=== PATIENT | female | born 1965 | race Caucasian/White ===

== ENCOUNTER 2018-12-29 14:19 | Outpatient (REF) | payer MEDICARE, MEDICAID, SELFPAY ==
[2018-12-29 19:05] LABS: Anion Gap 8.3 mmol/L (3-11); BUN 10 mg/dL (7-18); CO2 32.7 mmol/L (21.0-32.0); CREATININE 0.58 mg/dL (0.55-1.02); Calculated LDL 167 mg/dL; Chloride 100 mmol/L (98-107); Cholesterol 237 mg/dL (50-200); Glucose 119 mg/dL (70-100); HDL Cholesterol 53 mg/dL (40-60); Potassium 4.4 mmol/L (3.5-5.1); Sodium 141 mmol/L (136-145); Triglyceride 87 mg/dL (30-150)
== END 2018-12-29 14:39 ==
LOC: NCHCN 14:19
PROVIDERS: PCP Internal Medicine; Visit Provider Nurse Practitioner Family
DX: E78.5 Hyperlipidemia, unspecified (principal); I10 Essential (primary) hypertension
CPT/HCPCS: 80048; 80061; 83721

== ENCOUNTER 2019-12-28 14:15 | Outpatient (REF) | payer MEDICARE, MEDICAID, SELFPAY ==
[2019-12-28 19:26] LABS: Anion Gap 3.5 mmol/L (3-11); BUN 11 mg/dL (7-18); CO2 33.5 mmol/L (21.0-32.0); CREATININE 0.55 mg/dL (0.55-1.02); Calcium 9.2 mg/dL (8.5-10.1); Calculated LDL 166 mg/dL (<100); Chloride 102 mmol/L (98-107); Cholesterol 255 mg/dL (<200); Glucose 128 mg/dL (74-106); HDL Cholesterol 55 mg/dL (40-60); Sodium 139 mmol/L (136-145); Triglyceride 171 mg/dL (<150)
== END 2019-12-28 14:35 ==
LOC: NCHCN 14:15
PROVIDERS: PCP Internal Medicine; Visit Provider Nurse Practitioner Family
DX: E78.5 Hyperlipidemia, unspecified (principal); I10 Essential (primary) hypertension
CPT/HCPCS: 80048; 80061

== ENCOUNTER 2021-02-05 17:36 | Outpatient (REF) | payer MEDICARE, MEDICAID, SELFPAY ==
[2021-02-05 20:03] LABS: ALT 16 U/L (14-59); AST 10 U/L (15-37); Albumin 3.7 g/dL (3.4-5.0); Alkaline Phosphatase 68 U/L (46-116); Anion Gap 1.3 mmol/L (3-11); BUN 8 mg/dL (7-18); Bilirubin, Total 0.3 mg/dL (0.2-1.0); CO2 40.7 mmol/L (21.0-32.0); CREATININE 0.5 mg/dL (0.55-1.02); Calcium 9.3 mg/dL (8.5-10.1); Calculated LDL 157 mg/dL (<100); Chloride 99 mmol/L (98-107); Cholesterol 227 mg/dL (<200); Glucose 110 mg/dL (74-106); HDL Cholesterol 52 mg/dL (40-60); Potassium 4.3 mmol/L (3.5-5.1); Sodium 141 mmol/L (136-145); Triglyceride 93 mg/dL (<150)
== END 2021-02-05 17:37 | disposition home or self-care (01) ==
LOC: NCHCN 17:36
PROVIDERS: PCP Internal Medicine; Visit Provider Nurse Practitioner Family
DX: E78.5 Hyperlipidemia, unspecified (principal); I10 Essential (primary) hypertension
CPT/HCPCS: 80053; 80061

== ENCOUNTER 2021-02-15 13:09 | Outpatient (REF) | payer MEDICARE, MEDICAID, SELFPAY ==
[2021-02-15 19:46] LABS: Abs Immature Grans 0.01 10^3/uL (0.0-0.06); Absolute Basophil Count 0.04 10^3/uL (0.0-0.2); Absolute Eosinophil Count 0.14 10^3/uL (0.0-0.7); Absolute Monocyte Count 0.38 10^3/uL (0.1-0.8); Absolute Neutrophil Count 4.36 10^3/uL (1.2-6.7); Basophils % 0.7; Eosinophils % 2.3; HCT 34.8 % (36.0-46.0); HGB 10.7 g/dL (11.2-15.7); Immature Grans % 0.2; Lymphocytes % 18.2; MCH 28.5 pg (27.0-33.0); MCHC 30.7 % (32.0-36.0); MCV 92.8 fL (80-95); Monocytes % 6.3; Neutrophils % 72.3; Nucleated RBC 0 %; Platelet Count 267 10^3/uL (130-400); RBC 3.75 10^6/uL (3.93-5.22); RDW 13.2 % (11.7-14.6); WBC 6.03 10^3/uL (4.4-10.8)
[2021-02-16 21:57] LABS: CEA 1010.7 ng/mL (See Note)
[2021-02-19 19:45] LABS: DPYD Phenotype Normal metabolizer
== END 2021-02-15 13:10 | disposition home or self-care (01) ==
LOC: LBN 13:09
PROVIDERS: PCP Internal Medicine; Visit Provider Internal Medicine Hematology & Oncology
DX: C20 Malignant neoplasm of rectum (principal); C78.7 Secondary malignant neoplasm of liver and intrahepatic bile duct
CPT/HCPCS: 81232; 82378; 85025

== ENCOUNTER 2021-02-27 01:13 | Outpatient (RCR) | payer MEDICARE, MEDICAID, SELFPAY ==
[2021-02-27 10:49] LABS: Abs Immature Grans 0.01 10^3/uL (0.0-0.06); Absolute Basophil Count 0.03 10^3/uL (0.0-0.2); Absolute Eosinophil Count 0.17 10^3/uL (0.0-0.7); Absolute Lymphocyte Count 1.28 10^3/uL (1.2-3.4); Absolute Monocyte Count 0.47 10^3/uL (0.1-0.8); Basophils % 0.5; Eosinophils % 2.8; HCT 34.2 % (36.0-46.0); HGB 10.6 g/dL (11.2-15.7); Immature Grans % 0.2; Lymphocytes % 20.8; MCV 93.7 fL (80-95); MPV 10.8 fL (8.0-11.0); Monocytes % 7.6; Neutrophils % 68.1; Nucleated RBC 0 %; Platelet Count 246 10^3/uL (130-400); RBC 3.65 10^6/uL (3.93-5.22); RDW 13.3 % (11.7-14.6); RDW-SD 45.8 fL; WBC 6.16 10^3/uL (4.4-10.8)
[2021-02-27 11:02] LABS: ALT 15 U/L (14-59); AST 12 U/L (15-37); Albumin 3.6 g/dL (3.4-5.0); Alkaline Phosphatase 70 U/L (46-116); Anion Gap 2.7 mmol/L (3-11); BUN 9 mg/dL (7-18); Bilirubin, Total 0.3 mg/dL (0.2-1.0); CO2 39.3 mmol/L (21.0-32.0); CREATININE 0.5 mg/dL (0.55-1.02); Calcium 9.2 mg/dL (8.5-10.1); Chloride 99 mmol/L (98-107); Glucose 120 mg/dL (74-106); Potassium 4.3 mmol/L (3.5-5.1); Sodium 141 mmol/L (136-145); Total Protein 7.4 g/dL (6.4-8.2)
[2021-02-27] MEDS: Normal Saline Flush 10 ML SYR IVP (11:03)
[2021-02-27 23:16] LABS: CEA 1038.7 ng/mL (See Note)
== END 2021-03-04 23:59 | disposition home or self-care (01) ==
LOC: INF 01:13
PROVIDERS: PCP Internal Medicine; Visit Provider Internal Medicine Hematology & Oncology
DX: C20 Malignant neoplasm of rectum (principal); C78.7 Secondary malignant neoplasm of liver and intrahepatic bile duct; Z45.2 Encounter for adjustment and management of vascular access device
CPT/HCPCS: 36415; 36591; 80053; 96523; 82378; 85025

== ENCOUNTER 2021-03-26 01:41 | Outpatient (RCR) | payer MEDICARE, MEDICAID, SELFPAY ==
[2021-03-12] MEDS: Normal Saline Flush 10 ML SYR IVP (12:27)
[2021-03-12 12:28] LABS: Abs Immature Grans 0.01 10^3/uL (0.0-0.06); Absolute Basophil Count 0.01 10^3/uL (0.0-0.2); Absolute Eosinophil Count 0.16 10^3/uL (0.0-0.7); Absolute Neutrophil Count 3.81 10^3/uL (1.2-6.7); Basophils % 0.2; Eosinophils % 2.9; HCT 31.7 % (36.0-46.0); HGB 9.7 g/dL (11.2-15.7); Immature Grans % 0.2; MCH 28.7 pg (27.0-33.0); MCHC 30.6 % (32.0-36.0); MCV 93.8 fL (80-95); MPV 10.4 fL (8.0-11.0); Monocytes % 7.3; Neutrophils % 69.4; Nucleated RBC 0 %; Platelet Count 228 10^3/uL (130-400); RBC 3.38 10^6/uL (3.93-5.22); RDW 13.3 % (11.7-14.6); RDW-SD 45.7 fL; WBC 5.49 10^3/uL (4.4-10.8)
[2021-03-12 12:40] LABS: ALT 16 U/L (14-59); AST 17 U/L (15-37); Albumin 3.6 g/dL (3.4-5.0); Alkaline Phosphatase 79 U/L (46-116); Anion Gap -1.7 mmol/L (3-11); BUN 8 mg/dL (7-18); Bilirubin, Total 0.3 mg/dL (0.2-1.0); CO2 41.7 mmol/L (21.0-32.0); CREATININE 0.4 mg/dL (0.55-1.02); Calcium 9.1 mg/dL (8.5-10.1); Chloride 100 mmol/L (98-107); Glucose 120 mg/dL (74-106); Potassium 4.3 mmol/L (3.5-5.1); Sodium 140 mmol/L (136-145); Total Protein 7.3 g/dL (6.4-8.2)
[2021-03-26] MEDS: Normal Saline Flush 10 ML SYR IVP (09:16)
[2021-03-26 09:30] LABS: Abs Immature Grans 0.02 10^3/uL (0.0-0.06); Absolute Basophil Count 0.03 10^3/uL (0.0-0.2); Absolute Eosinophil Count 0.17 10^3/uL (0.0-0.7); Absolute Lymphocyte Count 1.27 10^3/uL (1.2-3.4); Absolute Monocyte Count 0.66 10^3/uL (0.1-0.8); Absolute Neutrophil Count 4.04 10^3/uL (1.2-6.7); Basophils % 0.5; Eosinophils % 2.7; HGB 9.9 g/dL (11.2-15.7); Immature Grans % 0.3; Lymphocytes % 20.5; MCH 29.1 pg (27.0-33.0); MCHC 30.9 % (32.0-36.0); MCV 94.1 fL (80-95); MPV 10.4 fL (8.0-11.0); Monocytes % 10.7; Neutrophils % 65.3; Nucleated RBC 0 %; Platelet Count 212 10^3/uL (130-400); RDW 13.7 % (11.7-14.6); RDW-SD 46.1 fL; WBC 6.19 10^3/uL (4.4-10.8)
[2021-03-26 09:51] LABS: ALT 16 U/L (14-59); AST 14 U/L (15-37); Albumin 3.6 g/dL (3.4-5.0); Alkaline Phosphatase 82 U/L (46-116); Anion Gap -1.3 mmol/L (3-11); BUN 9 mg/dL (7-18); Bilirubin, Total 0.3 mg/dL (0.2-1.0); CO2 41.3 mmol/L (21.0-32.0); CREATININE 0.5 mg/dL (0.55-1.02); Calcium 9.2 mg/dL (8.5-10.1); Chloride 99 mmol/L (98-107); Glucose 140 mg/dL (74-106); Potassium 4.3 mmol/L (3.5-5.1); Sodium 139 mmol/L (136-145); Total Protein 7.4 g/dL (6.4-8.2)
== END 2021-04-03 23:59 | disposition home or self-care (01) ==
LOC: INF 01:41
PROVIDERS: PCP Internal Medicine; Visit Provider Internal Medicine Hematology & Oncology
DX: C20 Malignant neoplasm of rectum (principal); C78.7 Secondary malignant neoplasm of liver and intrahepatic bile duct; Z45.2 Encounter for adjustment and management of vascular access device
CPT/HCPCS: 36591; 80053; 82378; 85025

== ENCOUNTER 2021-04-24 01:17 | Outpatient (RCR) | payer MEDICARE, MEDICAID, SELFPAY ==
[2021-04-09] MEDS: Normal Saline Flush 10 ML SYR IVP (13:20)
[2021-04-09] MEDS: Heparin 500 UNITS/5 ML SYRINGE IV (13:21)
[2021-04-09 13:29] LABS: Abs Immature Grans 0.02 10^3/uL (0.0-0.06); Absolute Basophil Count 0.02 10^3/uL (0.0-0.2); Absolute Eosinophil Count 0.07 10^3/uL (0.0-0.7); Absolute Lymphocyte Count 1.03 10^3/uL (1.2-3.4); Absolute Monocyte Count 0.49 10^3/uL (0.1-0.8); Absolute Neutrophil Count 3.96 10^3/uL (1.2-6.7); Basophils % 0.4; Eosinophils % 1.3; HGB 9.9 g/dL (11.2-15.7); Immature Grans % 0.4; Lymphocytes % 18.4; MCH 29.5 pg (27.0-33.0); MCHC 30.9 % (32.0-36.0); MCV 95.2 fL (80-95); MPV 10.4 fL (8.0-11.0); Monocytes % 8.8; Neutrophils % 70.7; Nucleated RBC 0 %; Platelet Count 182 10^3/uL (130-400); RBC 3.36 10^6/uL (3.93-5.22); RDW 14.6 % (11.7-14.6); RDW-SD 49.9 fL; WBC 5.59 10^3/uL (4.4-10.8)
[2021-04-09 13:42] LABS: ALT 20 U/L (14-59); AST 17 U/L (15-37); Albumin 3.6 g/dL (3.4-5.0); Alkaline Phosphatase 90 U/L (46-116); Anion Gap 2.3 mmol/L (3-11); BUN 8 mg/dL (7-18); Bilirubin, Total 0.3 mg/dL (0.2-1.0); CO2 39.7 mmol/L (21.0-32.0); CREATININE 0.5 mg/dL (0.55-1.02); Calcium 9.2 mg/dL (8.5-10.1); Chloride 98 mmol/L (98-107); Glucose 130 mg/dL (74-106); Sodium 140 mmol/L (136-145); Total Protein 7.4 g/dL (6.4-8.2)
[2021-04-10 21:12] LABS: CEA 569.9 ng/mL (See Note)
[2021-04-24 10:10] LABS: Abs Immature Grans 0.02 10^3/uL (0.0-0.06); Absolute Basophil Count 0.03 10^3/uL (0.0-0.2); Absolute Eosinophil Count 0.16 10^3/uL (0.0-0.7); Absolute Lymphocyte Count 1.16 10^3/uL (1.2-3.4); Absolute Monocyte Count 0.58 10^3/uL (0.1-0.8); Absolute Neutrophil Count 3.15 10^3/uL (1.2-6.7); Basophils % 0.6; Eosinophils % 3.1; HGB 9.5 g/dL (11.2-15.7); Immature Grans % 0.4; Lymphocytes % 22.7; MCH 29.8 pg (27.0-33.0); MCHC 30.6 % (32.0-36.0); MCV 97.2 fL (80-95); MPV 10.5 fL (8.0-11.0); Monocytes % 11.4; Neutrophils % 61.8; Nucleated RBC 0 %; Platelet Count 176 10^3/uL (130-400); RBC 3.19 10^6/uL (3.93-5.22); RDW-SD 52.2 fL
[2021-04-24 10:27] LABS: Iron 33 ug/dL (50-170); Total Iron Binding Capacity 291 ug/dL (250-450); Transferrin Sat 11 % (15-50)
[2021-04-24 10:36] LABS: ALT 18 U/L (14-59); AST 14 U/L (15-37); Albumin 3.3 g/dL (3.4-5.0); Alkaline Phosphatase 81 U/L (46-116); Anion Gap -1.1 mmol/L (3-11); BUN 12 mg/dL (7-18); Bilirubin, Total 0.3 mg/dL (0.2-1.0); CO2 41.1 mmol/L (21.0-32.0); CREATININE 0.5 mg/dL (0.55-1.02); Chloride 101 mmol/L (98-107); Ferritin 81 ng/mL (8-252); Glucose 109 mg/dL (74-106); Potassium 4.3 mmol/L (3.5-5.1); Sodium 141 mmol/L (136-145); Total Protein 6.7 g/dL (6.4-8.2)
[2021-04-24] MEDS: Normal Saline Flush 10 ML SYR IVP (11:07)
[2021-04-24 23:55] LABS: CEA 321.1 ng/mL (See Note)
== END 2021-05-04 23:59 | disposition home or self-care (01) ==
LOC: INF 01:17
PROVIDERS: PCP Internal Medicine; Visit Provider Internal Medicine Hematology & Oncology
DX: C20 Malignant neoplasm of rectum (principal); Z45.2 Encounter for adjustment and management of vascular access device; D53.9 Nutritional anemia, unspecified; C78.7 Secondary malignant neoplasm of liver and intrahepatic bile duct
CPT/HCPCS: 36591; 80053; 82378; 82728; 83540; 83550; 85025

== ENCOUNTER 2021-06-04 01:16 | Outpatient (RCR) | payer MEDICARE, MEDICAID, SELFPAY ==
[2021-05-07] MEDS: Heparin 500 UNITS/5 ML SYRINGE IV (13:37)
[2021-05-07] MEDS: Normal Saline Flush 10 ML SYR IVP (13:37)
[2021-05-07 13:54] LABS: Abs Immature Grans 0.01 10^3/uL (0.0-0.06); Absolute Basophil Count 0.02 10^3/uL (0.0-0.2); Absolute Eosinophil Count 0.08 10^3/uL (0.0-0.7); Absolute Lymphocyte Count 1.18 10^3/uL (1.2-3.4); Absolute Monocyte Count 0.66 10^3/uL (0.1-0.8); Absolute Neutrophil Count 3.48 10^3/uL (1.2-6.7); Basophils % 0.4; Eosinophils % 1.5; HCT 31.1 % (36.0-46.0); HGB 9.6 g/dL (11.2-15.7); Immature Grans % 0.2; Lymphocytes % 21.7; MCH 29.9 pg (27.0-33.0); MCHC 30.9 % (32.0-36.0); MCV 96.9 fL (80-95); MPV 10.7 fL (8.0-11.0); Monocytes % 12.2; Nucleated RBC 0 %; Platelet Count 153 10^3/uL (130-400); RBC 3.21 10^6/uL (3.93-5.22); RDW 14.9 % (11.7-14.6); RDW-SD 52.7 fL; WBC 5.43 10^3/uL (4.4-10.8)
[2021-05-07 14:20] LABS: ALT 20 U/L (14-59); AST 15 U/L (15-37); Albumin 3.4 g/dL (3.4-5.0); Alkaline Phosphatase 89 U/L (46-116); Anion Gap 2.6 mmol/L (3-11); BUN 10 mg/dL (7-18); Bilirubin, Total 0.4 mg/dL (0.2-1.0); CO2 39.4 mmol/L (21.0-32.0); CREATININE 0.6 mg/dL (0.55-1.02); Calcium 9.1 mg/dL (8.5-10.1); Chloride 99 mmol/L (98-107); Glucose 145 mg/dL (74-106); Potassium 4.5 mmol/L (3.5-5.1); Sodium 141 mmol/L (136-145)
[2021-05-08 03:41] LABS: CEA 196.9 ng/mL (See Note)
[2021-05-21] MEDS: Normal Saline Flush 10 ML SYR IVP (08:36)
[2021-05-21 08:43] LABS: Abs Immature Grans 0.01 10^3/uL (0.0-0.06); Absolute Basophil Count 0.02 10^3/uL (0.0-0.2); Absolute Eosinophil Count 0.12 10^3/uL (0.0-0.7); Absolute Lymphocyte Count 1.42 10^3/uL (1.2-3.4); Absolute Monocyte Count 0.72 10^3/uL (0.1-0.8); Absolute Neutrophil Count 2.58 10^3/uL (1.2-6.7); Basophils % 0.4; Eosinophils % 2.5; HCT 32.3 % (36.0-46.0); HGB 9.6 g/dL (11.2-15.7); Immature Grans % 0.2; Lymphocytes % 29.2; MCH 29.6 pg (27.0-33.0); MCHC 29.7 % (32.0-36.0); MCV 99.7 fL (80-95); MPV 10.4 fL (8.0-11.0); Monocytes % 14.8; Neutrophils % 52.9; Nucleated RBC 0 %; Platelet Count 143 10^3/uL (130-400); RBC 3.24 10^6/uL (3.93-5.22); RDW 15.2 % (11.7-14.6); RDW-SD 55.2 fL; WBC 4.87 10^3/uL (4.4-10.8)
[2021-05-21 08:52] LABS: ALT 26 U/L (14-59); AST 25 U/L (15-37); Albumin 3.5 g/dL (3.4-5.0); Alkaline Phosphatase 87 U/L (46-116); Anion Gap 0.2 mmol/L (3-11); BUN 8 mg/dL (7-18); Bilirubin, Total 0.3 mg/dL (0.2-1.0); CO2 40.8 mmol/L (21.0-32.0); CREATININE 0.5 mg/dL (0.55-1.02); Chloride 99 mmol/L (98-107); Glucose 116 mg/dL (74-106); Potassium 4.4 mmol/L (3.5-5.1); Sodium 140 mmol/L (136-145); Total Protein 7.1 g/dL (6.4-8.2)
[2021-05-21 19:19] LABS: CEA 210.8 ng/mL (See Note)
[2021-06-04] MEDS: Normal Saline Flush 10 ML SYR IVP (12:39)
[2021-06-04 12:58] LABS: Abs Immature Grans 0.02 10^3/uL (0.0-0.06); Absolute Basophil Count 0.02 10^3/uL (0.0-0.2); Absolute Eosinophil Count 0.08 10^3/uL (0.0-0.7); Absolute Monocyte Count 0.67 10^3/uL (0.1-0.8); Absolute Neutrophil Count 3.24 10^3/uL (1.2-6.7); Basophils % 0.4; Eosinophils % 1.6; HCT 32.1 % (36.0-46.0); HGB 9.8 g/dL (11.2-15.7); Immature Grans % 0.4; Lymphocytes % 19.9; MCH 30.2 pg (27.0-33.0); MCHC 30.5 % (32.0-36.0); MCV 99.1 fL (80-95); MPV 10.5 fL (8.0-11.0); Monocytes % 13.3; Neutrophils % 64.4; Nucleated RBC 0 %; Platelet Count 129 10^3/uL (130-400); RBC 3.24 10^6/uL (3.93-5.22); RDW 15.5 % (11.7-14.6); WBC 5.03 10^3/uL (4.4-10.8)
[2021-06-04 13:21] LABS: ALT 31 U/L (14-59); AST 29 U/L (15-37); Albumin 3.6 g/dL (3.4-5.0); Alkaline Phosphatase 82 U/L (46-116); Anion Gap 1.5 mmol/L (3-11); BUN 7 mg/dL (7-18); Bilirubin, Total 0.3 mg/dL (0.2-1.0); CO2 40.5 mmol/L (21.0-32.0); CREATININE 0.5 mg/dL (0.55-1.02); Chloride 99 mmol/L (98-107); Glucose 132 mg/dL (74-106); Potassium 4.4 mmol/L (3.5-5.1); Sodium 141 mmol/L (136-145); Total Protein 7.4 g/dL (6.4-8.2)
[2021-06-04 23:26] LABS: CEA 172.6 ng/mL (See Note)
== END 2021-06-04 23:59 | disposition home or self-care (01) ==
LOC: INF 01:16
PROVIDERS: PCP Internal Medicine; Visit Provider Internal Medicine Hematology & Oncology
DX: C20 Malignant neoplasm of rectum (principal); Z45.2 Encounter for adjustment and management of vascular access device
CPT/HCPCS: 36591; 80053; 82378; 85025

== ENCOUNTER 2021-06-26 03:08 | Outpatient (RCR) | payer MEDICARE, MEDICAID, SELFPAY ==
[2021-06-26] MEDS: Normal Saline Flush 10 ML SYR IVP (12:25)
[2021-06-26 12:34] LABS: Abs Immature Grans 0.01 10^3/uL (0.0-0.06); Absolute Basophil Count 0.02 10^3/uL (0.0-0.2); Absolute Eosinophil Count 0.14 10^3/uL (0.0-0.7); Absolute Lymphocyte Count 1.14 10^3/uL (1.2-3.4); Absolute Monocyte Count 0.66 10^3/uL (0.1-0.8); Absolute Neutrophil Count 1.55 10^3/uL (1.2-6.7); Basophils % 0.6; HCT 34.7 % (36.0-46.0); HGB 10.4 g/dL (11.2-15.7); Immature Grans % 0.3; Lymphocytes % 32.4; MCH 30.2 pg (27.0-33.0); MCV 100.9 fL (80-95); MPV 10.2 fL (8.0-11.0); Monocytes % 18.8; Neutrophils % 43.9; Nucleated RBC 0 %; Platelet Count 164 10^3/uL (130-400); RBC 3.44 10^6/uL (3.93-5.22); RDW 14.6 % (11.7-14.6); RDW-SD 53.4 fL; WBC 3.52 10^3/uL (4.4-10.8)
[2021-06-26 12:47] LABS: ALT 23 U/L (14-59); AST 22 U/L (15-37); Albumin 3.5 g/dL (3.4-5.0); Alkaline Phosphatase 85 U/L (46-116); Anion Gap 2.2 mmol/L (3-11); BUN 3 mg/dL (7-18); Bilirubin, Total 0.4 mg/dL (0.2-1.0); CO2 43.8 mmol/L (21.0-32.0); CREATININE 0.5 mg/dL (0.55-1.02); Calcium 9.5 mg/dL (8.5-10.1); Chloride 98 mmol/L (98-107); Glucose 127 mg/dL (74-106); Potassium 4.2 mmol/L (3.5-5.1); Sodium 144 mmol/L (136-145); Total Protein 7.5 g/dL (6.4-8.2)
[2021-06-27 08:40] LABS: CEA 225.4 ng/mL (See Note)
== END 2021-07-02 23:59 | disposition home or self-care (01) ==
LOC: INF 03:08
PROVIDERS: PCP Internal Medicine; Visit Provider Internal Medicine Hematology & Oncology
DX: C20 Malignant neoplasm of rectum (principal); Z45.2 Encounter for adjustment and management of vascular access device
CPT/HCPCS: 36591; 80053; 82378; 85025

== ENCOUNTER 2021-07-17 00:53 | Outpatient (RCR) | payer MEDICARE, MEDICAID, SELFPAY ==
[2021-07-17] MEDS: Normal Saline Flush 10 ML SYR IVP (09:54)
[2021-07-17 10:11] LABS: Abs Immature Grans 0.01 10^3/uL (0.0-0.06); Absolute Basophil Count 0.02 10^3/uL (0.0-0.2); Absolute Lymphocyte Count 0.95 10^3/uL (1.2-3.4); Absolute Neutrophil Count 1.94 10^3/uL (1.2-6.7); Basophils % 0.6; Eosinophils % 2.8; HCT 33.7 % (36.0-46.0); HGB 10.3 g/dL (11.2-15.7); Immature Grans % 0.3; Lymphocytes % 26.2; MCH 31.2 pg (27.0-33.0); MCHC 30.6 % (32.0-36.0); MCV 102.1 fL (80-95); MPV 10.5 fL (8.0-11.0); Monocytes % 16.6; Neutrophils % 53.5; Nucleated RBC 0 %; Platelet Count 153 10^3/uL (130-400); RDW 14.4 % (11.7-14.6); RDW-SD 54.5 fL; WBC 3.62 10^3/uL (4.4-10.8)
[2021-07-17 10:27] LABS: ALT 21 U/L (14-59); AST 22 U/L (15-37); Albumin 3.5 g/dL (3.4-5.0); Alkaline Phosphatase 77 U/L (46-116); Anion Gap 1.7 mmol/L (3-11); BUN 6 mg/dL (7-18); Bilirubin, Total 0.3 mg/dL (0.2-1.0); CO2 41.3 mmol/L (21.0-32.0); CREATININE 0.4 mg/dL (0.55-1.02); Calcium 9.2 mg/dL (8.5-10.1); Chloride 97 mmol/L (98-107); Glucose 159 mg/dL (74-106); Potassium 3.7 mmol/L (3.5-5.1); Sodium 140 mmol/L (136-145); Total Protein 7.5 g/dL (6.4-8.2)
[2021-07-17 18:10] LABS: CEA 71.4 ng/mL (See Note)
== END 2021-08-02 23:59 | disposition home or self-care (01) ==
LOC: INF 00:53
PROVIDERS: PCP Internal Medicine; Visit Provider Internal Medicine Hematology & Oncology
DX: C20 Malignant neoplasm of rectum (principal); C78.7 Secondary malignant neoplasm of liver and intrahepatic bile duct; Z45.2 Encounter for adjustment and management of vascular access device
CPT/HCPCS: 36591; 80053; 82378; 85025

== ENCOUNTER 2021-08-24 00:49 | Outpatient (RCR) | payer MEDICARE, MEDICAID, SELFPAY ==
[2021-08-03] MEDS: Normal Saline Flush 10 ML SYR IVP (08:25)
[2021-08-03 08:42] LABS: Abs Immature Grans 0.01 10^3/uL (0.0-0.06); Absolute Basophil Count 0.02 10^3/uL (0.0-0.2); Absolute Eosinophil Count 0.06 10^3/uL (0.0-0.7); Absolute Lymphocyte Count 1.28 10^3/uL (1.2-3.4); Absolute Monocyte Count 0.47 10^3/uL (0.1-0.8); Absolute Neutrophil Count 1.54 10^3/uL (1.2-6.7); Basophils % 0.6; Eosinophils % 1.8; HCT 32.1 % (36.0-46.0); HGB 9.9 g/dL (11.2-15.7); Immature Grans % 0.3; Lymphocytes % 37.9; MCH 31.3 pg (27.0-33.0); MCHC 30.8 % (32.0-36.0); MCV 101.6 fL (80-95); MPV 10.7 fL (8.0-11.0); Monocytes % 13.9; Neutrophils % 45.5; Nucleated RBC 0 %; Platelet Count 140 10^3/uL (130-400); RBC 3.16 10^6/uL (3.93-5.22); RDW 14.4 % (11.7-14.6); RDW-SD 53.9 fL; WBC 3.38 10^3/uL (4.4-10.8)
[2021-08-03 09:00] LABS: ALT 23 U/L (14-59); AST 16 U/L (15-37); Albumin 3.5 g/dL (3.4-5.0); Alkaline Phosphatase 74 U/L (46-116); Anion Gap -0.3 mmol/L (3-11); BUN 8 mg/dL (7-18); Bilirubin, Total 0.4 mg/dL (0.2-1.0); CO2 44.3 mmol/L (21.0-32.0); CREATININE 0.5 mg/dL (0.55-1.02); Chloride 99 mmol/L (98-107); Glucose 137 mg/dL (74-106); Potassium 3.6 mmol/L (3.5-5.1); Sodium 143 mmol/L (136-145); Total Protein 7.2 g/dL (6.4-8.2)
[2021-08-03 19:43] LABS: CEA 42.2 ng/mL (See Note)
[2021-08-10] MEDS: Normal Saline Flush 10 ML SYR IVP (10:22)
[2021-08-10 10:34] LABS: Abs Immature Grans 0.02 10^3/uL (0.0-0.06); Absolute Basophil Count 0.03 10^3/uL (0.0-0.2); Absolute Eosinophil Count 0.09 10^3/uL (0.0-0.7); Absolute Lymphocyte Count 0.96 10^3/uL (1.2-3.4); Absolute Monocyte Count 0.63 10^3/uL (0.1-0.8); Absolute Neutrophil Count 2.52 10^3/uL (1.2-6.7); Basophils % 0.7; Eosinophils % 2.1; HCT 34.6 % (36.0-46.0); HGB 10.6 g/dL (11.2-15.7); Immature Grans % 0.5; Lymphocytes % 22.6; MCH 31.3 pg (27.0-33.0); MCHC 30.6 % (32.0-36.0); MCV 102.1 fL (80-95); MPV 10.9 fL (8.0-11.0); Monocytes % 14.8; Neutrophils % 59.3; Nucleated RBC 0 %; Platelet Count 155 10^3/uL (130-400); RBC 3.39 10^6/uL (3.93-5.22); RDW 14.2 % (11.7-14.6); RDW-SD 53.7 fL; WBC 4.25 10^3/uL (4.4-10.8)
[2021-08-10 10:50] LABS: ALT 20 U/L (14-59); AST 16 U/L (15-37); Albumin 3.6 g/dL (3.4-5.0); Alkaline Phosphatase 72 U/L (46-116); BUN 7 mg/dL (7-18); Bilirubin, Total 0.3 mg/dL (0.2-1.0); CREATININE 0.4 mg/dL (0.55-1.02); Calcium 9.5 mg/dL (8.5-10.1); Chloride 99 mmol/L (98-107); Glucose 123 mg/dL (74-106); Potassium 4.1 mmol/L (3.5-5.1); Sodium 140 mmol/L (136-145); Total Protein 7.5 g/dL (6.4-8.2)
[2021-08-10 10:55] LABS: CO2 42.9 mmol/L (21.0-32.0)
[2021-08-10 10:56] LABS: Anion Gap -1.9 mmol/L (3-11)
[2021-08-10 18:36] LABS: CEA 36.2 ng/mL (See Note)
[2021-08-12 13:30] VITALS: BP 105/57; PULSE 61; RESP 24; TEMP 36.1; O2SAT 88
[2021-08-12] MEDS: Normal Saline Flush 10 ML SYR IVP (13:34)
[2021-08-12] MEDS: Heparin 500 UNITS/5 ML SYRINGE IV (13:34)
[2021-08-24] MEDS: Normal Saline Flush 10 ML SYR IVP (09:26)
[2021-08-24 09:33] LABS: Abs Immature Grans 0.03 10^3/uL (0.0-0.06); Absolute Basophil Count 0.02 10^3/uL (0.0-0.2); Absolute Eosinophil Count 0.06 10^3/uL (0.0-0.7); Absolute Lymphocyte Count 1.28 10^3/uL (1.2-3.4); Absolute Neutrophil Count 5.54 10^3/uL (1.2-6.7); Basophils % 0.3; Eosinophils % 0.8; HGB 9.7 g/dL (11.2-15.7); Immature Grans % 0.4; MCH 30.9 pg (27.0-33.0); MCHC 29.4 % (32.0-36.0); MCV 105.1 fL (80-95); MPV 11.1 fL (8.0-11.0); Neutrophils % 73.5; Platelet Count 116 10^3/uL (130-400); RBC 3.14 10^6/uL (3.93-5.22); RDW 13.8 % (11.7-14.6); WBC 7.53 10^3/uL (4.4-10.8)
[2021-08-24 09:44] LABS: ALT 18 U/L (14-59); AST 17 U/L (15-37); Albumin 3.4 g/dL (3.4-5.0); Alkaline Phosphatase 66 U/L (46-116); BUN 11 mg/dL (7-18); Bilirubin, Total 0.3 mg/dL (0.2-1.0); CREATININE 0.5 mg/dL (0.55-1.02); Calcium 9.2 mg/dL (8.5-10.1); Chloride 98 mmol/L (98-107); Glucose 155 mg/dL (74-106); Potassium 3.8 mmol/L (3.5-5.1); Sodium 142 mmol/L (136-145)
[2021-08-24 09:57] LABS: Anion Gap -1.00001 mmol/L (3-11); CO2 > 45.0 mmol/L (21.0-32.0)
[2021-08-24 18:14] LABS: CEA 30.5 ng/mL (See Note)
== END 2021-09-01 23:59 | disposition home or self-care (01) ==
LOC: INF 00:49
PROVIDERS: PCP Internal Medicine; Visit Provider Internal Medicine Hematology & Oncology
DX: C20 Malignant neoplasm of rectum (principal); Z45.2 Encounter for adjustment and management of vascular access device
CPT/HCPCS: 36591; 80053; 96523; 82378; 85025

== ENCOUNTER → 2021-10-03 03:24 | Outpatient (CLI) | payer MEDICARE, MEDICAID, SELFPAY ==
--- NOTE | 2021-10-03 | DI.MRI_ITS ---
Exam(s) MR BRAIN WO/W EXAM: MR BRAIN WO/W CLINICAL HISTORY: COLON CA, METS TO LIVER, C18.9, C78.7, NEW ONSET CONFUSTION. TECHNIQUE: Multiplanar multisequence MRI was performed. COMPARISON: No exams were available for comparison FINDINGS: No prior examinations were available for comparison. Brain MRI is performed according to the usual p rotocol with additional post contrast axial and coronal T1 weighted imaging and MP rage imaging. Ventricular system is normal appearance. There are scattered small focal areas of abnormal signal in the periventricular white matter consistent with microvascular ischemic change. Note is also made of an area of abnormal signal on T2 weighted and FLAIR imaging in the right subinsu lar region measuring up to about 3 by 2 cm in diameter. This shows no evidence of enhancement. Ther e is no diffusion restriction in this area or elsewhere in the brain. There is no evident mass effec t. There is no evidence of hemorrhage here or elsewhere in the brain on susceptibility weighted imag ing. There is slightly decreased signal noted on T1 weighted images in this area. The orbital and temporal bone structures appear intact. There is grossly normal flow-void in the cir [id number]-Dihyok region. Pituitary appears intact. IMPRESSION: Lesion with increased signal and no evident mass effect in the sub insular region on the right as bayron cribed above. There is wide differential diagnosis, patient reportedly has a history of colon carcin ta and a nonenhancing metastatic lesion is a diagnostic possibility. However other etiologies inclu ding demyelinating or vascular process are probably more likely. Clinical correlation requested and prior studies are requested for comparison. DATA REPOSITORY:
[2021-10-03] MEDS: Gadoterate meglumine 20 ML VIAL IVP (14:20)
[2021-10-03] MEDS: Normal Saline Flush 10 ML SYR IVP (14:21)
== END ==
PROVIDERS: PCP Internal Medicine; Visit Provider Internal Medicine Hematology & Oncology
DX: R41.0 Disorientation, unspecified (principal); C18.9 Malignant neoplasm of colon, unspecified; C78.7 Secondary malignant neoplasm of liver and intrahepatic bile duct; I67.82 Cerebral ischemia
CPT/HCPCS: 70553; 96523

== ENCOUNTER 2021-10-03 03:32 | Outpatient (RCR) | payer MEDICARE, MEDICAID, SELFPAY ==
[2021-10-03 00:03] VITALS: BP 105/57; PULSE 61; RESP 24; TEMP 36.1
[2021-10-03] MEDS: Heparin 500 UNITS/5 ML SYRINGE IV (13:41)
[2021-10-03] MEDS: Normal Saline Flush 10 ML SYR IVP (13:41)
== END 2021-11-01 23:59 | disposition home or self-care (01) ==
LOC: INF 03:32
PROVIDERS: PCP Internal Medicine; Visit Provider Internal Medicine Hematology & Oncology
DX: Z45.2 Encounter for adjustment and management of vascular access device (principal)
CPT/HCPCS: 96523

== ENCOUNTER 2021-11-12 15:31 | Outpatient (REF) | payer MEDICARE, MEDICAID, SELFPAY ==
[2021-11-12 19:39] LABS: Abs Immature Grans 0.01 10^3/uL (0.0-0.06); Absolute Basophil Count 0.02 10^3/uL (0.0-0.2); Absolute Eosinophil Count 0.02 10^3/uL (0.0-0.7); Absolute Lymphocyte Count 0.59 10^3/uL (1.2-3.4); Absolute Monocyte Count 0.38 10^3/uL (0.1-0.8); Absolute Neutrophil Count 3.76 10^3/uL (1.2-6.7); Basophils % 0.4; Eosinophils % 0.4; HGB 10.8 g/dL (11.2-15.7); Immature Grans % 0.2; Lymphocytes % 12.3; MCH 31.5 pg (27.0-33.0); MCHC 30.9 % (32.0-36.0); MCV 102 fL (80-95); MPV 11.7 fL (8.0-11.0); Monocytes % 7.9; Neutrophils % 78.8; Platelet Count 143 10^3/uL (130-400); RBC 3.43 10^6/uL (3.93-5.22); RDW 13.1 % (11.7-14.6); RDW-SD 49.3 fL; Reticulocyte 0.9 % (0.5-2.4); WBC 4.78 10^3/uL (4.4-10.8)
[2021-11-12 19:45] LABS: Iron 58 ug/dL (50-170); Total Iron Binding Capacity 322 ug/dL (250-450); Transferrin Sat 18 % (15-50)
[2021-11-12 19:56] LABS: ALT 20 U/L (14-59); AST 15 U/L (15-37); Alkaline Phosphatase 56 U/L (46-116); BUN 10 mg/dL (7-18); Bilirubin, Total 0.4 mg/dL (0.2-1.0); CREATININE 0.4 mg/dL (0.55-1.02); Calcium 9.4 mg/dL (8.5-10.1); Chloride 95 mmol/L (98-107); Ferritin 114 ng/mL (8-252); Glucose 112 mg/dL (74-106); Potassium 4.6 mmol/L (3.5-5.1); Sodium 145 mmol/L (136-145); Total Protein 7.2 g/dL (6.4-8.2)
[2021-11-12 20:01] LABS: Anion Gap 4.99999 mmol/L (3-11); CO2 > 45.0 mmol/L (21.0-32.0)
== END 2021-11-12 15:32 | disposition home or self-care (01) ==
LOC: NCHCN 15:31
PROVIDERS: PCP Internal Medicine; Visit Provider Nurse Practitioner Family
DX: D64.9 Anemia, unspecified (principal)
CPT/HCPCS: 80053; 85045; 82728; 83540; 83550; 85025

== ENCOUNTER 2022-01-04 01:34 | Outpatient (RCR) | payer MEDICARE, MEDICAID, SELFPAY ==
[2021-12-03 00:17] VITALS: BP 105/57; PULSE 61; RESP 24; TEMP 36.1
[2022-01-04] MEDS: Normal Saline Flush 10 ML SYR IVP (14:48)
[2022-01-04] MEDS: Heparin 500 UNITS/5 ML SYRINGE IV (14:48)
[2022-01-04 15:04] LABS: Abs Immature Grans 0.01 10^3/uL (0.0-0.06); Absolute Basophil Count 0.01 10^3/uL (0.0-0.2); Absolute Eosinophil Count 0.02 10^3/uL (0.0-0.7); Absolute Monocyte Count 0.33 10^3/uL (0.1-0.8); Absolute Neutrophil Count 3.21 10^3/uL (1.2-6.7); Basophils % 0.2; Eosinophils % 0.5; HCT 28.7 % (36.0-46.0); HGB 8.8 g/dL (11.2-15.7); Immature Grans % 0.2; Lymphocytes % 14.4; MCH 31.5 pg (27.0-33.0); MCHC 30.7 % (32.0-36.0); MCV 103 fL (80-95); MPV 10.5 fL (8.0-11.0); Monocytes % 7.9; Neutrophils % 76.8; Platelet Count 178 10^3/uL (130-400); RBC 2.79 10^6/uL (3.93-5.22); RDW 13.4 % (11.7-14.6); RDW-SD 50.7 fL; WBC 4.18 10^3/uL (4.4-10.8)
[2022-01-04 15:10] LABS: ALT 14 U/L (14-59); AST 12 U/L (15-37); Albumin 3.3 g/dL (3.4-5.0); Alkaline Phosphatase 74 U/L (46-116); BUN 8 mg/dL (7-18); Bilirubin, Total 0.2 mg/dL (0.2-1.0); CREATININE 0.4 mg/dL (0.55-1.02); Calcium 9.1 mg/dL (8.5-10.1); Chloride 97 mmol/L (98-107); Estimated GFR 115.37 (mL/min/1.73m2); Glucose 148 mg/dL (74-106); Potassium 4.3 mmol/L (3.5-5.1); Sodium 140 mmol/L (136-145); Total Protein 7.1 g/dL (6.4-8.2)
[2022-01-04 15:22] LABS: Anion Gap -2.00001 mmol/L (3-11); CO2 > 45.0 mmol/L (21.0-32.0)
[2022-01-04 22:29] LABS: CEA 19.3 ng/mL (See Note)
== END 2022-02-01 23:59 | disposition home or self-care (01) ==
LOC: INF 01:34
PROVIDERS: PCP Internal Medicine; Visit Provider Internal Medicine Hematology & Oncology
DX: C20 Malignant neoplasm of rectum (principal); C78.7 Secondary malignant neoplasm of liver and intrahepatic bile duct; Z45.2 Encounter for adjustment and management of vascular access device
CPT/HCPCS: 36591; 80053; 82378; 85025

== ENCOUNTER 2022-03-24 13:30 | Outpatient (RCR) | payer MEDICARE, MEDICAID, SELFPAY ==
[2022-03-05 00:18] VITALS: BP 105/57; PULSE 61; RESP 24; TEMP 36.1
[2022-03-08 15:12] LABS: Abs Immature Grans 0.02 10^3/uL (0.0-0.06); RDW-SD 48.9 fL
[2022-03-08 15:16] LABS: Absolute Basophil Count 0.02 10^3/uL (0.0-0.2); WBC 4.49 10^3/uL (4.4-10.8)
[2022-03-08 15:17] LABS: Absolute Eosinophil Count 0.02 10^3/uL (0.0-0.7); Absolute Monocyte Count 0.36 10^3/uL (0.1-0.8); Absolute Neutrophil Count 3.58 10^3/uL (1.2-6.7); HGB 10.1 g/dL (11.2-15.7); RBC 3.31 10^6/uL (3.93-5.22)
[2022-03-08 15:18] LABS: HCT 33.5 % (36.0-46.0); MCH 30.5 pg (27.0-33.0); MCHC 30.1 % (32.0-36.0); MCV 101 fL (80-95); MPV 11.4 fL (8.0-11.0); Platelet Count 131 10^3/uL (130-400)
[2022-03-08 15:19] LABS: Basophils % 0.4; Eosinophils % 0.4; Immature Grans % 0.4; Lymphocytes % 11.1; Neutrophils % 79.7
[2022-03-08 15:33] LABS: ALT 13 U/L (14-59); AST 14 U/L (15-37); Albumin 3.8 g/dL (3.4-5.0); Alkaline Phosphatase 62 U/L (46-116); BUN 13 mg/dL (7-18); Bilirubin, Total 0.3 mg/dL (0.2-1.0); CREATININE 0.4 mg/dL (0.55-1.02); Calcium 9.7 mg/dL (8.5-10.1); Chloride 97 mmol/L (98-107); Estimated GFR 115.37 (mL/min/1.73m2); Glucose 114 mg/dL (74-106); Potassium 4.2 mmol/L (3.5-5.1); Sodium 143 mmol/L (136-145); Total Protein 7.4 g/dL (6.4-8.2)
[2022-03-08 15:38] LABS: Anion Gap 0.99999 mmol/L (3-11); CO2 > 45.0 mmol/L (21.0-32.0)
[2022-03-08 22:34] LABS: CEA 58.3 ng/mL (See Note)
[2022-03-15] MEDS: Normal Saline Flush 10 ML SYR IVP (10:22)
[2022-03-15] MEDS: Heparin 500 UNITS/5 ML SYRINGE IV (10:23)
[2022-03-15 10:30] LABS: Abs Immature Grans 0.01 10^3/uL (0.0-0.06); Absolute Basophil Count 0.02 10^3/uL (0.0-0.2); Absolute Eosinophil Count 0.02 10^3/uL (0.0-0.7); Absolute Lymphocyte Count 0.66 10^3/uL (1.2-3.4); Absolute Monocyte Count 0.46 10^3/uL (0.1-0.8); Absolute Neutrophil Count 3.47 10^3/uL (1.2-6.7); Basophils % 0.4; Eosinophils % 0.4; HCT 32.8 % (36.0-46.0); HGB 9.8 g/dL (11.2-15.7); Immature Grans % 0.2; Lymphocytes % 14.2; MCH 30.4 pg (27.0-33.0); MCHC 29.9 % (32.0-36.0); MCV 102 fL (80-95); MPV 10.9 fL (8.0-11.0); Monocytes % 9.9; Neutrophils % 74.9; Platelet Count 136 10^3/uL (130-400); RBC 3.22 10^6/uL (3.93-5.22); RDW 13.1 % (11.7-14.6); RDW-SD 49.2 fL; WBC 4.64 10^3/uL (4.4-10.8)
[2022-03-15 10:46] LABS: ALT 11 U/L (14-59); AST 14 U/L (15-37); Albumin 3.6 g/dL (3.4-5.0); Alkaline Phosphatase 57 U/L (46-116); BUN 10 mg/dL (7-18); Bilirubin, Total 0.3 mg/dL (0.2-1.0); CREATININE 0.4 mg/dL (0.55-1.02); Calcium 9.3 mg/dL (8.5-10.1); Chloride 99 mmol/L (98-107); Estimated GFR 115.37 (mL/min/1.73m2); Glucose 122 mg/dL (74-106); Potassium 4.1 mmol/L (3.5-5.1); Sodium 143 mmol/L (136-145); Total Protein 7.1 g/dL (6.4-8.2)
[2022-03-15 11:06] LABS: Anion Gap -1.00001 mmol/L (3-11); CO2 > 45.0 mmol/L (21.0-32.0)
[2022-03-18 09:26] LABS: CEA 155.6 ng/mL (See Note)
[2022-03-22] MEDS: Normal Saline Flush 10 ML SYR IVP (10:24)
[2022-03-22 10:41] LABS: Abs Immature Grans 0.03 10^3/uL (0.0-0.06); Absolute Basophil Count 0.02 10^3/uL (0.0-0.2); Absolute Eosinophil Count 0.01 10^3/uL (0.0-0.7); Absolute Lymphocyte Count 0.71 10^3/uL (1.2-3.4); Absolute Monocyte Count 0.48 10^3/uL (0.1-0.8); Absolute Neutrophil Count 4.77 10^3/uL (1.2-6.7); Basophils % 0.3; Eosinophils % 0.2; HCT 33.4 % (36.0-46.0); HGB 10.2 g/dL (11.2-15.7); Immature Grans % 0.5; Lymphocytes % 11.8; MCH 30.5 pg (27.0-33.0); MCHC 30.5 % (32.0-36.0); MCV 100 fL (80-95); MPV 11.2 fL (8.0-11.0); Neutrophils % 79.2; Platelet Count 129 10^3/uL (130-400); RBC 3.34 10^6/uL (3.93-5.22); RDW-SD 47.9 fL; WBC 6.02 10^3/uL (4.4-10.8)
[2022-03-22 11:39] LABS: Albumin 3.8 g/dL (3.4-5.0); Alkaline Phosphatase 58 U/L (46-116); BUN 11 mg/dL (7-18); Bilirubin, Total 0.4 mg/dL (0.2-1.0); CO2 > 45.0 mmol/L (21.0-32.0); CREATININE 0.4 mg/dL (0.55-1.02); Calcium 9.7 mg/dL (8.5-10.1); Chloride 93 mmol/L (98-107); Estimated GFR 115.37 (mL/min/1.73m2); Glucose 121 mg/dL (74-106); Potassium 4.1 mmol/L (3.5-5.1); Sodium 140 mmol/L (136-145); Total Protein 7.5 g/dL (6.4-8.2)
[2022-03-22 11:40] LABS: ALT 13 U/L (14-59); AST 12 U/L (15-37)
[2022-03-22 23:06] LABS: CEA 200.4 ng/mL (See Note)
[2022-03-24 14:27] VITALS: BP 107/47; PULSE 70; RESP 22; TEMP 35.9; O2SAT 86
[2022-03-24] MEDS: Heparin 500 UNITS/5 ML SYRINGE IV (14:36)
[2022-03-24] MEDS: Normal Saline Flush 10 ML SYR IVP (14:36)
== END 2022-04-03 23:59 | disposition home or self-care (01) ==
LOC: INF 13:30
PROVIDERS: PCP Internal Medicine; Visit Provider Internal Medicine Hematology & Oncology
DX: C20 Malignant neoplasm of rectum (principal); Z45.2 Encounter for adjustment and management of vascular access device
CPT/HCPCS: 36415; 36591; 80053; 96523; 82378; 85025

== ENCOUNTER 2022-05-03 00:38 | Outpatient (RCR) | payer MEDICARE, MEDICAID, SELFPAY ==
[2022-04-04 00:19] VITALS: BP 107/47; PULSE 70; RESP 22; TEMP 35.9
[2022-04-05] MEDS: Normal Saline Flush 10 ML SYR IVP (10:58)
[2022-04-05 11:07] LABS: Abs Immature Grans 0.02 10^3/uL (0.0-0.06); Absolute Basophil Count 0.01 10^3/uL (0.0-0.2); Absolute Eosinophil Count 0.03 10^3/uL (0.0-0.7); Absolute Lymphocyte Count 0.56 10^3/uL (1.2-3.4); Absolute Monocyte Count 0.52 10^3/uL (0.1-0.8); Absolute Neutrophil Count 3.31 10^3/uL (1.2-6.7); Basophils % 0.2; Eosinophils % 0.7; HCT 28.9 % (36.0-46.0); HGB 8.8 g/dL (11.2-15.7); Immature Grans % 0.4; Lymphocytes % 12.6; MCHC 30.4 % (32.0-36.0); MCV 102 fL (80-95); MPV 10.2 fL (8.0-11.0); Monocytes % 11.7; Neutrophils % 74.4; RBC 2.84 10^6/uL (3.93-5.22); RDW 13.2 % (11.7-14.6); WBC 4.45 10^3/uL (4.4-10.8)
[2022-04-05 11:32] LABS: Diff Comment Diff Reviewed; Platelet Count 168 10^3/uL (130-400)
[2022-04-05 11:33] LABS: Hypochromasia 3+; Stomatocytes 2+
[2022-04-05 11:36] LABS: Albumin 3.1 g/dL (3.4-5.0); Alkaline Phosphatase 58 U/L (46-116); BUN 7 mg/dL (7-18); Bilirubin, Total 0.3 mg/dL (0.2-1.0); CO2 > 45.0 mmol/L (21.0-32.0); CREATININE 0.4 mg/dL (0.55-1.02); Calcium 9.2 mg/dL (8.5-10.1); Chloride 96 mmol/L (98-107); Estimated GFR 115.37 (mL/min/1.73m2); Glucose 124 mg/dL (74-106); Potassium 4.2 mmol/L (3.5-5.1); Sodium 141 mmol/L (136-145)
[2022-04-05 11:37] LABS: ALT 14 U/L (14-59); AST 14 U/L (15-37)
[2022-04-07 13:03] VITALS: BP 97/47; PULSE 69; RESP 20; TEMP 36.1; O2SAT 90
[2022-04-07] MEDS: Heparin 500 UNITS/5 ML SYRINGE IV (13:09)
[2022-04-07] MEDS: Normal Saline Flush 10 ML SYR IVP (13:09)
[2022-04-08 13:32] LABS: CEA 737.7 ng/mL (See Note)
[2022-04-19 09:39] LABS: Abs Immature Grans 0.03 10^3/uL (0.0-0.06); Absolute Basophil Count 0.01 10^3/uL (0.0-0.2); Absolute Eosinophil Count 0.02 10^3/uL (0.0-0.7); Absolute Lymphocyte Count 0.61 10^3/uL (1.2-3.4); Absolute Monocyte Count 0.45 10^3/uL (0.1-0.8); Absolute Neutrophil Count 4.38 10^3/uL (1.2-6.7); Basophils % 0.2; Eosinophils % 0.4; HGB 9.5 g/dL (11.2-15.7); Immature Grans % 0.5; Lymphocytes % 11.1; MCH 30.3 pg (27.0-33.0); MCHC 30.6 % (32.0-36.0); MCV 99 fL (80-95); MPV 10.7 fL (8.0-11.0); Monocytes % 8.2; Neutrophils % 79.6; Platelet Count 154 10^3/uL (130-400); RBC 3.14 10^6/uL (3.93-5.22); RDW 13.8 % (11.7-14.6); RDW-SD 50.2 fL
[2022-04-19] MEDS: Normal Saline Flush 10 ML SYR IVP (09:41)
[2022-04-19 09:59] LABS: ALT 15 U/L (14-59); AST 16 U/L (15-37); Albumin 3.7 g/dL (3.4-5.0); Alkaline Phosphatase 71 U/L (46-116); Anion Gap -2.1 mmol/L (3-11); BUN 9 mg/dL (7-18); Bilirubin, Total 0.4 mg/dL (0.2-1.0); CO2 44.1 mmol/L (21.0-32.0); CREATININE 0.4 mg/dL (0.55-1.02); Calcium 9.4 mg/dL (8.5-10.1); Chloride 95 mmol/L (98-107); Estimated GFR 115.37 (mL/min/1.73m2); Glucose 126 mg/dL (74-106); Potassium 3.9 mmol/L (3.5-5.1); Sodium 137 mmol/L (136-145); Total Protein 7.2 g/dL (6.4-8.2)
[2022-04-19 23:21] LABS: CEA 400.2 ng/mL (See Note)
[2022-04-21] MEDS: Heparin 500 UNITS/5 ML SYRINGE IV (11:30)
[2022-04-21] MEDS: Normal Saline Flush 10 ML SYR IVP (11:30)
[2022-04-21 16:19] VITALS: BP 101/59; PULSE 72; RESP 22; TEMP 36.5; O2SAT 86
[2022-05-03] MEDS: Normal Saline Flush 10 ML SYR IVP (10:44)
[2022-05-03 11:05] LABS: Abs Immature Grans 0.01 10^3/uL (0.0-0.06); Absolute Basophil Count 0.02 10^3/uL (0.0-0.2); Absolute Eosinophil Count 0.03 10^3/uL (0.0-0.7); Absolute Lymphocyte Count 0.56 10^3/uL (1.2-3.4); Absolute Monocyte Count 0.44 10^3/uL (0.1-0.8); Absolute Neutrophil Count 3.77 10^3/uL (1.2-6.7); Basophils % 0.4; Eosinophils % 0.6; HCT 31.9 % (36.0-46.0); HGB 9.7 g/dL (11.2-15.7); Immature Grans % 0.2; Lymphocytes % 11.6; MCH 30.8 pg (27.0-33.0); MCHC 30.4 % (32.0-36.0); MCV 101 fL (80-95); MPV 11.2 fL (8.0-11.0); Monocytes % 9.1; Neutrophils % 78.1; Platelet Count 159 10^3/uL (130-400); RBC 3.15 10^6/uL (3.93-5.22); RDW 14.5 % (11.7-14.6); RDW-SD 54.2 fL; WBC 4.83 10^3/uL (4.4-10.8)
[2022-05-03 11:20] LABS: BUN 13 mg/dL (7-18); CREATININE 0.4 mg/dL (0.55-1.02); Calcium 9.6 mg/dL (8.5-10.1); Estimated GFR 114.65 (mL/min/1.73m2); Glucose 138 mg/dL (74-106); Total Protein 7.5 g/dL (6.4-8.2)
[2022-05-03 11:21] LABS: ALT 15 U/L (14-59); AST 14 U/L (15-37); Albumin 3.7 g/dL (3.4-5.0); Alkaline Phosphatase 68 U/L (46-116); Bilirubin, Total 0.3 mg/dL (0.2-1.0); CO2 > 45.0 mmol/L (21.0-32.0); Chloride 98 mmol/L (98-107); Potassium 4.3 mmol/L (3.5-5.1); Sodium 139 mmol/L (136-145)
== END 2022-05-04 23:59 | disposition home or self-care (01) ==
LOC: INF 00:38
PROVIDERS: PCP Internal Medicine; Visit Provider Internal Medicine Hematology & Oncology
DX: C18.9 Malignant neoplasm of colon, unspecified (principal); Z45.2 Encounter for adjustment and management of vascular access device
CPT/HCPCS: 36591; 80053; 96523; 82378; 85025

== ENCOUNTER 2022-05-24 01:09 | Outpatient (RCR) | payer MEDICARE, MEDICAID, SELFPAY ==
[2022-05-05 00:10] VITALS: BP 101/59; PULSE 72; RESP 22; TEMP 36.5
[2022-05-05 14:00] VITALS: BP 107/74; PULSE 71; RESP 24; TEMP 36.5; O2SAT 37
[2022-05-05] MEDS: Normal Saline Flush 10 ML SYR IVP (14:56)
[2022-05-05] MEDS: Heparin 500 UNITS/5 ML SYRINGE IV (14:57)
== END 2022-06-04 23:59 | disposition home or self-care (01) ==
LOC: INF 01:09
PROVIDERS: PCP Internal Medicine; Visit Provider Internal Medicine Hematology & Oncology
DX: Z45.2 Encounter for adjustment and management of vascular access device (principal)

== ENCOUNTER 2022-06-21 00:18 | Outpatient (RCR) | payer MEDICARE, MEDICAID, SELFPAY ==
[2022-06-05 00:14] VITALS: BP 107/74; PULSE 71; RESP 24; TEMP 36.5
[2022-06-21] MEDS: Normal Saline Flush 10 ML SYR IVP (10:49)
[2022-06-21 10:59] LABS: Abs Immature Grans 0.01 10^3/uL (0.0-0.06); Absolute Basophil Count 0.01 10^3/uL (0.0-0.2); Absolute Eosinophil Count 0.02 10^3/uL (0.0-0.7); Absolute Monocyte Count 0.47 10^3/uL (0.1-0.8); Absolute Neutrophil Count 4.75 10^3/uL (1.2-6.7); Basophils % 0.2; Eosinophils % 0.3; HCT 34.7 % (36.0-46.0); HGB 10.2 g/dL (11.2-15.7); Immature Grans % 0.2; Lymphocytes % 10.2; MCH 30.4 pg (27.0-33.0); MCHC 29.4 % (32.0-36.0); MCV 103 fL (80-95); MPV 11.2 fL (8.0-11.0); Neutrophils % 81.1; Platelet Count 154 10^3/uL (130-400); RBC 3.36 10^6/uL (3.93-5.22); RDW 13.7 % (11.7-14.6); RDW-SD 52.5 fL; WBC 5.86 10^3/uL (4.4-10.8)
[2022-06-21 11:20] LABS: ALT 19 U/L (14-59); AST 14 U/L (15-37); Albumin 3.7 g/dL (3.4-5.0); Alkaline Phosphatase 66 U/L (46-116); BUN 8 mg/dL (7-18); Bilirubin, Total 0.3 mg/dL (0.2-1.0); CREATININE 0.3 mg/dL (0.55-1.02); Calcium 9.6 mg/dL (8.5-10.1); Chloride 96 mmol/L (98-107); Estimated GFR 122.88 (mL/min/1.73m2); Glucose 136 mg/dL (74-106); Potassium 4.2 mmol/L (3.5-5.1); Sodium 140 mmol/L (136-145); Total Protein 7.2 g/dL (6.4-8.2)
[2022-06-21 11:25] LABS: Anion Gap -1.00001 mmol/L (3-11); CO2 > 45.0 mmol/L (21.0-32.0)
[2022-06-21 20:20] LABS: CEA 52.3 ng/mL (See Note)
== END 2022-07-02 23:59 | disposition home or self-care (01) ==
LOC: INF 00:18
PROVIDERS: PCP Nurse Practitioner Family; Visit Provider Internal Medicine Hematology & Oncology
DX: C18.9 Malignant neoplasm of colon, unspecified (principal); Z45.2 Encounter for adjustment and management of vascular access device
CPT/HCPCS: 36591; 80053; 82378; 85025